=== PATIENT | female | born 1975 | race Caucasian/White ===

== ENCOUNTER 2019-08-11 18:21 | Inpatient (IN) | payer OTHER ==
[~2019-08-11] VITALS: Ht 157.5 cm; Wt 150.7 kg
[2019-08-11 18:30] VITALS: Ht 157.5 cm; Wt 150.7 kg
[2019-08-11 20:24] LABS: CALCIUM 8.8 mg/dL (8.5-10.1); CARBON DIOXIDE 27.8 mmol/L (21-32); CHLORIDE SERUM 105 mmol/L (98-107); CREATININE SERUM 0.7 mg/dL (0.6-1.0); GFR1 > 60 mL/min; GLUCOSE SERUM 138 mg/dL (74-106); POTASSIUM SERUM 3.7 mmol/L (3.5-5.1); SODIUM SERUM 141 mmol/L (136-145)
[2019-08-11 20:25] LABS: BASOPHIL % 0.5 % (0-2); PLATELET COUNT 319 x10^3mcL (130-400); RED CELL DISTRIBUTION WIDTH 14.2 % (11.5-14.5)
[2019-08-11 20:31] LABS: ALKALINE PHOSPHATASE 88 U/L (46-116); ALT/SGPT 33 U/L (14-59); AST/SGOT 14 U/L (15-37); BILIRUBIN TOTAL 0.2 mg/dL (0.20-1.00); CHOLESTEROL 148 mg/dL (<200); HDL CHOLESTEROL 53 mg/dL (40-60); LIPASE 146 IU/L (73-393); MAGNESIUM 1.9 mg/dL (1.8-2.4); TOTAL PROTEIN, SERUM 7.6 g/dL (6.4-8.2)
[2019-08-11 20:50] LABS: UA SPECIFIC GRAVITY >=1.030 (1.005-1.035); microscopic required? YES; urine erythrocyte 2+ (NEGATIVE)
[2019-08-11 21:18] LABS: AMPHETAMINE QUAL UR NONE DETECTED (See below)
[2019-08-11 22:06] LABS: CHOLESTEROL/HDL RATIO 2.9
[2019-08-11 22:15] LABS: FREE T4 1.01 ng/dL (0.76-1.46); FREE THYROXINE INDEX 2.3 ug/dL (1.4-4.5); T3 TOTAL 1.51 ng/mL; T4(THYROXINE) 7.5 ug/dL (4.7-13.3)
[2019-08-11 23:17] VITALS: BP 118/77
[2019-08-12 02:19] LABS: C REACTIVE PROTEIN 2.8 mg/dL (<=0.9)
[2019-08-12 06:02] VITALS: BP 99/69
[2019-08-12 08:30] VITALS: BP 103/60
[2019-08-12 10:15] LABS: CALCIUM 8.7 mg/dL (8.5-10.1); CARBON DIOXIDE 28.9 mmol/L (21-32); CHLORIDE SERUM 105 mmol/L (98-107); CREATININE SERUM 0.6 mg/dL (0.6-1.0); GFR1 > 60 mL/min; GLUCOSE SERUM 106 mg/dL (74-106); PHOSPHOROUS 3.5 mg/dL (2.5-4.9); POTASSIUM SERUM 4.3 mmol/L (3.5-5.1); SODIUM SERUM 141 mmol/L (136-145)
[2019-08-12 12:21] VITALS: BP 105/63
[2019-08-12 12:28] LABS: BASOPHIL % 0.5 % (0-2); PLATELET COUNT 267 x10^3mcL (130-400); RED CELL DISTRIBUTION WIDTH 14.2 % (11.5-14.5)
[2019-08-12 17:36] VITALS: BP 103/63
[2019-08-12 19:24] VITALS: BP 107/59
[2019-08-13 04:50] VITALS: BP 102/55
[2019-08-13 07:53] VITALS: BP 97/43
[2019-08-13] MEDS ORDERED: BG FS (09:21)
[2019-08-13] MEDS ORDERED: TES100 PO (09:22)
[2019-08-13] MEDS ORDERED: GLUCOPHAGE500 MG PO (09:23)
[2019-08-13 09:26] LABS: BASOPHIL % 0.6 % (0-2); PLATELET COUNT 314 x10^3mcL (130-400)
[2019-08-13 09:41] LABS: RED CELL DISTRIBUTION WIDTH 14.7 % (11.5-14.5)
[2019-08-13 09:48] LABS: CALCIUM 8.9 mg/dL (8.5-10.1); CARBON DIOXIDE 29.6 mmol/L (21-32); CHLORIDE SERUM 104 mmol/L (98-107); CREATININE SERUM 0.6 mg/dL (0.6-1.0); GFR1 > 60 mL/min; GLUCOSE SERUM 103 mg/dL (74-106); PHOSPHOROUS 3.2 mg/dL (2.5-4.9); POTASSIUM SERUM 4.1 mmol/L (3.5-5.1); SODIUM SERUM 140 mmol/L (136-145)
[2019-08-13] MEDS ORDERED: ZITHROMAX250 MG PO (09:58)
[2019-08-13 12:47] VITALS: BP 88/47
[2019-08-13 13:32] VITALS: BP 106/76
== END 2019-08-13 14:54 | disposition home or self-care (01) | DRG 199 ==
LOC: ED 18:21 → DU 21:16
PROVIDERS: Emergency Medicine; Internal Medicine; ADMIT Internal Medicine
DX: I16.1 Hypertensive emergency (principal); E11.65 Type 2 diabetes mellitus with hyperglycemia; J20.9 Acute bronchitis, unspecified; E66.2 Morbid (severe) obesity with alveolar hypoventilation; Z68.44 Body mass index [BMI] 60.0-69.9, adult; Z90.49 Acquired absence of other specified parts of digestive tract; Z23 Encounter for immunization
CPT/HCPCS: 82962; 83880; 84439; 85378; 87804; 90658; G0378; J7040; Q0092; U0002